=== PATIENT | male | born 1965 | race Hispanic/Latino ===

== ENCOUNTER 2018-08-02 09:20 | Emergency (ER) | payer MEDICAID, OTHER ==
[2018-08-02 09:20] VITALS: BMI 23.7
[2018-08-02 09:33] VITALS: RESP 18
[2018-08-02] MEDS ORDERED: Pantoprazole 40 MG in Sodium Chloride 0.9% 100 ML IV STA (09:37)
--- NOTE | 2018-08-02 09:40 | ED PDOC ---
Arrival/HPI - General Chief Complaint: Abdominal Pain Time Seen by Provider: 08/02/18 09:29 Historian: Patient - History of Present Illness Narrative History of Present Illness (Text): 08/02/18 09:40 A 52 year old male, whose past medical history includes kidney stones, presents to the emergency department complaining of non-radiating generalized abdominal pain, nausea, vomiting, diarrhea for 3 days. Patient reports . Patient denies any genitourinary symptoms, fever, chills, or any other complaints at this time. Denies any travel or sick contacts. Denies any history of smoking/substance abuse, and stopped drinking alcohol 5 years ago. Time/Duration: < week (3 days) Associated Symptoms (Text): 08/02/18 10:33 3-day history of generalized crampy abdominal pain along with nausea vomiting and diarrhea. No travel or exposure. No genitourinary symptoms. No fever. Past Medical History - Provider Review Nursing Documentation Reviewed: Yes - Infectious Disease Hx of Infectious Diseases: None - Cardiac Hx Cardiac Disorders: No - Pulmonary Hx Respiratory Disorders: No - Neurological Hx Neurological Disorder: No - Renal Hx Kidney Stones: Yes - Psychiatric Hx Psychophysiologic Disorder: No Hx Emotional Abuse: No Hx Hallucinations: No Hx Panic Disorder: No Hx Psychosis: No Hx Physical Abuse: No Hx Sexual Abuse: No Hx Substance Use: Yes - Surgical History Hx Orthopedic Surgery: Yes (R arm) - Anesthesia Hx Anesthesia: Yes Hx Anesthesia Reactions: No Hx Malignant Hyperthermia: No - Suicidal Assessment Feels Threatened In Home Enviroment: No Family/Social History - Physician Review Nursing Documentation Reviewed: Yes Family/Social History: No Known Family HX Smoking Status: Heavy Smoker > 10 Cigarettes Daily Hx Alcohol Use: Yes Frequency of alcohol use: Socially Hx Substance Use: Yes Substance used: heroin Hx Substance Use Treatment: No Allergies/Home Meds Allergies/Adverse Reactions: Allergies Penicillins Allergy (Verified 10/11/17 15:38) RASH Review of Systems - Physician Review All systems were reviewed & negative as marked: Yes - Review of Systems Constitutional: absent: Fatigue, Fevers, Night Sweats Cardiovascular: absent: Chest Pain, Palpitations, Syncope Gastrointestinal: Abdominal Pain (non-radiating, generalized abdominal pain), Diarrhea, Nausea, Vomiting Genitourinary Male: absent: Dysuria, Frequency, Hematuria, Urinary Output Changes Neurological: absent: Headache, Dizziness, Focal Weakness Physical Exam Vital Signs Reviewed: Yes Vital Signs Temp Pulse Resp BP Pulse Ox 08/02/18 09:30 99 F 60 18 80/51 L 98 Temperature: Afebrile Blood Pressure: Hypotensive Pulse: Regular Respiratory Rate: Normal Appearance: Positive for: Ill-Appearing (chronically ill-appearing), Cachectic, Other (thin) Pain Distress: None Mental Status: Positive for: Alert and Oriented X 3 - Systems Exam Head: Present: Atraumatic, Normocephalic Pupils: Present: PERRL Extroacular Muscles: Present: EOMI Conjunctiva: Present: Normal Mouth: Present: Moist Mucous Membranes Pharnyx: No: ERYTHEMA, EXUDATE, TONSILS ENLARGED Neck: Present: Normal Range of Motion Respiratory/Chest: Present: Wheezes (mild wheezing bialterally) Cardiovascular: Present: Regular Rate and Rhythm, Normal S1, S2. No: Murmurs Abdomen: No: Tenderness, Distention, Peritoneal Signs, Rebound, Guarding Back: Present: Normal Inspection Upper Extremity: Present: Normal Inspection. No: Cyanosis, Edema Lower Extremity: Present: Normal Inspection. No: Edema Neurological: Present: GCS=15, CN II-XII Intact, Speech Normal, Motor Func Grossly Intact Skin: Present: Warm, Dry, Normal Color. No: Rashes Psychiatric: Present: Alert, Oriented x 3, Normal Insight, Normal Concentration Medical Decision Making ED Course and Treatment: 08/02/18 09:43 Impression: 52 year old male with non-radiating, generalized abdominal pain with nausea, vomiting, and diarrhea. Physical exam shows patient appears thin, cachectic, and chronically ill-appearing; mild wheezing bilaterally; no abdominal tenderness, no guarding/rebound. Plan: -- EKG -- Chest X-ray -- Labs -- Zofran -- Toradol -- Protonix -- IV Fluids -- Abdominal Ultrasound -- Urinalysis -- Reassess and disposition Progress Notes: 08/02/18 10:34 EKG shows sinus bradycardia rate approximately [address] or T wave changes. 08/02/2018 10:37 Chest X-ray IMPRESSION: No active disease. Dictator: Gus Garcia MD 08/02/18 13:17 Symptoms improved. Blood pressure improved. Discharged home accompanied by girlfriend. Follow-up with PMD. Follow-up in ER as needed. No narcotics secondary to opiate abuse. - RAD Interpretation Radiology Orders: 08/02/18 09:37 CHEST PORTABLE [RAD] Stat ABDOMEN COMPLETE [US] Stat Ultrasound abdomen is read by the radial shows a right lobe of the liver hemangioma compatible with previous CT scan. Chest one view as read by the radial is unremarkable. Sterilization Specialist: Radiologist - Medication Orders Current Medication Orders: Pantoprazole Sodium 40 mg/ (Sodium Chloride) 100 mls @ 400 mls/hr IV STAT STA Stop: 08/02/18 09:51 Sodium Chloride (Sodium Chloride 0.9%) 1,000 mls @ 500 mls/hr IV ONCE ONE Stop: 08/02/18 11:37 Ketorolac Tromethamine (Toradol) 15 mg IVP STAT STA Stop: 08/02/18 09:38 Ondansetron HCl (Zofran Inj) 4 mg IVP STAT STA Stop: 08/02/18 09:38 - Scribe Statement The provider has reviewed the documentation as recorded by the Claudia Rothman Provider Scribe Attestation: All medical record entries made by the Sumeetibmini were at my direction and personally dictated by me. I have reviewed the chart and agree that the record accurately reflects my personal performance of the history, physical exam, medical decision making, and the department course for this patient. I have also personally directed, reviewed, and agree with the discharge instructions and disposition. Disposition/Present on Arrival - Present on Arrival Any Indicators Present on Arrival: No History of DVT/PE: No History of Uncontrolled Diabetes: No Urinary Catheter: No History of Decub. Ulcer: No History Surgical Site Infection Following: None - Disposition Have Diagnosis and Disposition been Completed?: Yes Diagnosis: Abdominal pain, Gastroenteritis, Nausea vomiting and diarrhea Disposition: HOME/ ROUTINE Disposition Time: 13:19 Patient Plan: Discharge Condition: IMPROVED Discharge Instructions (ExitCare): Diarrhea in Adolescents and Adults, Viral Gastroenteritis, Nausea and Vomiting, Adult (DC), Acute Abdomen (Belly Pain) Additional Instructions: Clear liquids for 24 hours. Follow-up with PMD. Follow-up in ER as needed. Prescriptions: Pantoprazole Sodium [Protonix] 40 mg PO DAILY #20 ect Ondansetron ODT [Zofran ODT] 4 mg PO Q6 #20 odt Forms: [employer] (Filipino), WORK NOTE
[2018-08-02 09:50] LABS: PH,URINE 6.5 (4.7-8.0); URINE BILIRUBIN NEGATIVE (NEGATIVE); URINE BLOOD TRACE-INTACT (NEGATIVE); URINE GLUCOSE (UA) NEGATIVE (NEGATIVE); URINE LEUKOCYTE ESTERASE NEGATIVE Leu/uL (NEGATIVE); URINE PROTEIN NEGATIVE mg/dL (<30 mg/dL); URINE UROBILINOGEN 0.2 E.U./dL (<1 E.U./dL)
[2018-08-02 09:54] LABS: URINE APPEARANCE CLEAR (CLEAR); URINE COLOR YELLOW (YELLOW)
[2018-08-02] MEDS: Sodium Chloride 0.9% 1,000 ML IV ONE ×2 (10:21→11:43)
[2018-08-02 10:26] LABS: BASO # 0.04 K/mm3 (0.0-2.0); BASO % 0.4 % (0.0-3.0); LYMPH # 1.1 (1.2-3.4); MEAN CELL VOLUME 85.2 fl (80.0-105.0); MEAN CORPUSCULAR HEMOGLOBIN 29.2 pg (25.0-35.0); MEAN CORPUSCULAR HGB CONC 34.3 g/dl (31.0-37.0); MONO # 0.5 (0.1-0.6); MONO % 5.2 % (1.0-6.0); RBC 5.13 10^6/uL (3.5-6.1); RED CELL DISTRIBUTION WIDTH 12.2 % (11.5-14.5); WHITE BLOOD COUNT 9.1 10^3/uL (4.5-11.0)
--- NOTE | 2018-08-02 10:34 | RAD ---
Date of service: 08/02/2018 HISTORY: ap COMPARISON: Chest radiograph dated 06/24/2015. TECHNIQUE: 1 view obtained. FINDINGS: LUNGS: No active pulmonary disease. PLEURA: No significant pleural effusion identified, no pneumothorax apparent. CARDIOVASCULAR: Aortic atherosclerotic calcifications. Cardiomediastinal silhouette within normal limits. OSSEOUS STRUCTURES: Unchanged. VISUALIZED UPPER ABDOMEN: Normal. OTHER FINDINGS: None. IMPRESSION: No active disease.
[2018-08-02] MEDS ORDERED: Sodium Chloride 0.9% 1,000 ML IV ONE (10:37)
[2018-08-02 10:57] LABS: URINE BACTERIA FEW /hpf; URINE WBC 0 - 2 /hpf (0-6)
[2018-08-02 11:00] LABS: ALB/GLOB RATIO 1.6 (1.1-1.8); ALBUMIN 4.6 g/dL (3.0-4.8); ALT/SGPT 21 U/L (7-56); AMYLASE 64 U/L (35-125); AST/SGOT 20 U/L (17-59); BLOOD UREA NITROGEN 15 mg/dL (7-21); CALCIUM 9.5 mg/dL (8.4-10.5); GFR NON-AFRICAN AMERICAN > 60; LIPASE 88 U/L (23-300); TROPONIN I < 0.01 ng/mL
--- NOTE | 2018-08-02 11:20 | US ---
Date of service: 08/02/2018 HISTORY: pain COMPARISON: CT dissection study performed 06/24/2015 TECHNIQUE: Sonographic evaluation of the abdomen. FINDINGS: LIVER: Measures 17.0 cm. Normal echogenicity of the liver parenchyma. 2.7 x 2.2 x 2.6 cm heterogeneously isoechoic lesion in the right hepatic lobe with nodular Doppler flow. No intrahepatic bile duct dilatation. Main portal vein demonstrates normal directional flow. GALLBLADDER: Unremarkable. No gallstones. COMMON BILE DUCT: Measures 5 mm. No stones. No dilatation. PANCREAS: Unremarkable as visualized. No mass. No ductal dilatation. RIGHT KIDNEY: Measures 10.4 x 4.3 x 5.4cm. Normal echogenicity. No calculus, mass, or hydronephrosis. LEFT KIDNEY: Measures 11.8 x 5.8 x 5.7cm. Normal echogenicity. No calculus, mass, or hydronephrosis. SPLEEN: Normal in size and contour. No mass. AORTA: No aneurysmal dilatation. IVC: Unremarkable. OTHER FINDINGS: None. IMPRESSION: Right hepatic lobe lesion with nodular Doppler flow, correlating to the finding from CT scan from 06/24/2015, most compatible with a hemangioma. No other significant finding.
[2018-08-02 13:12] VITALS: O2SAT 100
[2018-08-02 13:26] VITALS: BP 134/59; PULSE 61; TEMP 98
--- NOTE | 2018-08-02 15:01 | CARD ---
APPROVED REPORT Date of service: 08/02/2018 EKG Measurement Heart [id number] <Conclusion> Suspect arm lead reversal, interpretation assumes no reversal Marked sinus bradycardia Rightward axis Abnormal ECG
== END 2018-08-02 13:24 | disposition home or self-care (01) ==
LOC: ED 09:20
DX: K52.9 Noninfective gastroenteritis and colitis, unspecified (principal); Z87.442 Personal history of urinary calculi
CPT/HCPCS: 71045; 76700; 80053; 81001; 82150; 82550; 83615; 83690; 84484; 85025; 93005; 96361; 96374; 96375; 99285; C9113; J1885; J2405; J7040